=== PATIENT | male | born 1945 | race Caucasian/White ===

== ENCOUNTER 2019-07-22 06:02 | Day surgery (SDC) | payer OTHER ==
[~2019-07-22] VITALS: Ht 170.2 cm; Wt 112.5 kg
[~2019-07-22 06:02] MED LIST: SODIUM CHLORIDE 0.9% 1000ML 1,000 ML IV ONE
[2019-07-22 06:39] VITALS: BP 138/64
[2019-07-22] MEDS ORDERED: DEXTROSE 50%-WATER 50 ML DISP.SYRIN IV ONE (07:06)
[2019-07-22] MEDS ORDERED: CARVEDILOL (07:14)
[2019-07-22] MEDS ORDERED: MULT1CAP32 PO (07:14)
[2019-07-22] MEDS ORDERED: SPIRIVA (07:14)
[2019-07-22] MEDS ORDERED: TAMS-1 PO (07:14)
[2019-07-22] MEDS ORDERED: LOSA100T58 PO (07:14)
[2019-07-22] MEDS ORDERED: TYL3 PO (07:14)
[2019-07-22] MEDS ORDERED: NOVOLOG INSULIN PUMP (07:14)
[2019-07-22] MEDS ORDERED: ATOR-2 PO (07:14)
[2019-07-22] MEDS ORDERED: SYMBICORT (07:14)
[2019-07-22] MEDS ORDERED: VITAMIN D3 (07:14)
[2019-07-22] MEDS ORDERED: GABA-531 PO (07:14)
[2019-07-22] MEDS ORDERED: ALBUTEROL (07:14)
[2019-07-22] MEDS ORDERED: AMLODIPINE (07:14)
[2019-07-22] MEDS ORDERED: PROPOFOL 10 MG/ML 20ML VIAL IV ONE (08:21)
[2019-07-22] MEDS ORDERED: LIDOCAINE HCL 1% 20 ML VIAL ONE (08:21)
[2019-07-22 08:49] VITALS: BP 134/60
[2019-07-22 08:54] VITALS: BP 147/76
[2019-07-22 08:59] VITALS: BP 159/81
[2019-07-22 09:04] VITALS: BP 148/78
[2019-07-22 09:09] VITALS: BP 142/76
== END 2019-07-22 10:04 | disposition home or self-care (01) ==
LOC: ENDO 06:02 → DAH 06:02 → ENDO 10:04
PROVIDERS: ATTEND Internal Medicine Gastroenterology
DX: Z12.11 Encounter for screening for malignant neoplasm of colon (principal); K63.5 Polyp of colon; K57.30 Diverticulosis of large intestine without perforation or abscess without bleeding; I25.10 Atherosclerotic heart disease of native coronary artery without angina pectoris; I10 Essential (primary) hypertension; J44.9 Chronic obstructive pulmonary disease, unspecified; E78.5 Hyperlipidemia, unspecified; E11.9 Type 2 diabetes mellitus without complications; M19.90 Unspecified osteoarthritis, unspecified site; I25.2 Old myocardial infarction; Z79.899 Other long term (current) drug therapy; Z86.010 Personal history of colon polyps; Z95.5 Presence of coronary angioplasty implant and graft; Z80.0 Family history of malignant neoplasm of digestive organs; Z96.642 Presence of left artificial hip joint; Z98.890 Other specified postprocedural states; Z98.49 Cataract extraction status, unspecified eye; Z79.84 Long term (current) use of oral hypoglycemic drugs; Z79.4 Long term (current) use of insulin; Z82.49 Family history of ischemic heart disease and other diseases of the circulatory system; Z82.3 Family history of stroke
CPT/HCPCS: 45380; 45385; 82948; 88305; A4215; A4221; A4222; A4223; A4606; A4663; J2704; J7030; J7070